=== PATIENT | female | born 1990 | race Hispanic/Latino ===

== ENCOUNTER 2017-02-14 02:58 | Emergency (ER) | payer BC ==
[2017-02-14 03:08] VITALS: BP 128/85; PULSE 97; RESP 16; TEMP 98.7; O2SAT 100
--- NOTE | 2017-02-14 03:48 | ED PDOC ---
HPI: Abdomen Time Seen by Provider: 02/14/17 03:04 Chief Complaint (Nursing): Abdominal Pain Chief Complaint (Provider): Abdominal Pain History Per: Patient History/Exam Limitations: no limitations Current Symptoms Are (Timing): Still Present Additional Complaint(s): 26 y/o female with past medical history of ruptured ovarian cyst presents to the ED complaining of acute onset lower abdominal pain x 4hours, which is about 6/10 and is worse with movement and activity. Pain begins spontaneously and is not associated with any activity or sexual intercourse. She states that the pain is reminiscent from the past with similar episode of rupture of ovarian cyst. Denies any further medical complaints. Past Medical History Reviewed: Historical Data, Nursing Documentation, Vital Signs Vital Signs: Last Vital Signs Temp 98.7 F 02/14/17 03:05 Pulse 97 H 02/14/17 03:05 Resp 16 02/14/17 03:05 BP 128/85 02/14/17 03:05 Pulse Ox 100 02/14/17 03:54 - Surgical History Other surgeries: Ovarian Cyst - Family History Family History: States: Unknown Family Hx - Social History Current smoker - smoking cessation education provided: No Alcohol: Social Drugs: Denies - Allergies Allergies/Adverse Reactions: Allergies Allergy/AdvReac Type Severity Reaction Status Date / Time No Known Allergies Allergy Verified 02/14/17 03:05 Review of Systems ROS Statement: Except As Marked, All Systems Reviewed And Found Negative (As per HPI, otherwise negative) Gastrointestinal: Positive for: Abdominal Pain Physical Exam - Reviewed Nursing Documentation Reviewed: Yes Vital Signs Reviewed: Yes - Physical Exam Appears: Positive for: Well, Non-toxic, No Acute Distress Head Exam: Positive for: ATRAUMATIC, NORMAL INSPECTION, NORMOCEPHALIC Skin: Positive for: Normal Color, Warm, Dry Eye Exam: Positive for: Normal appearance ENT: Positive for: Normal ENT Inspection Neck: Positive for: Normal, Painless ROM, Supple Cardiovascular/Chest: Positive for: Regular Rate, Rhythm. Negative for: Murmur Respiratory: Positive for: Normal Breath Sounds. Negative for: Accessory Muscle Use, Respiratory Distress Gastrointestinal/Abdominal: Positive for: Tenderness (Mild suprapubic tenderness ) Back: Positive for: Normal Inspection Extremity: Positive for: Normal ROM Neurologic/Psych: Positive for: Alert, Oriented (x3) - Laboratory Results Result Diagrams: 02/14/17 03:25 02/14/17 03:25 - ECG O2 Sat by Pulse Oximetry: 100 (RA) Pulse Ox Interpretation: Normal Medical Decision Making Medical Decision Making: Time: 03:24 Initial Impression: 26 y/o female with abdominal pain in setting of ruptured ovarian cyst Plan: BMP Urine dipstick Urine CBC w/ diff Heplock insertion Urinalysis Transvaginal US Patient declined any analgesic Time: 05:47 Patient has shown improvements in symptoms and is medically stable. No clinically significant abnormalities were found. Patient will be discharged home. Clinical Impression: Abdominal Pain Scribe Attestation: Documented by Jessica Doll acting as a scribe for Eh Gooden MD. Scribe Attestation: All medical record entries made by the Scribe were at my direction and personally dictated by me. I have reviewed the chart and agree that the record accurately reflects my personal performance of the history, physical exam, medical decision making, and the department course for this patient. I have also personally directed, reviewed, and agree with the discharge instructions and disposition. Disposition - Clinical Impression Clinical Impression: Abdominal pain - Disposition Disposition: Routine/Home Disposition Time: 05:47 Condition: STABLE Instructions: Abdominal Pain (ED) Forms: [employer] (Romanian)
[2017-02-14 03:53] LABS: BASO # 0.1 K/uL (0.0-0.2); BASO % 0.6 % (0.0-2.0); EOS # 0.1 K/uL (0.0-0.7); EOS % 1.4 % (0.0-4.0); HEMATOCRIT 39.4 % (34.0-47.0); LYMPH # 2.7 K/uL (1.0-4.3); LYMPH % 30.2 % (20.0-40.0); MEAN CELL VOLUME 88.4 fl (81.0-99.0); MEAN PLATELET VOLUME 9.5 fl (7.2-11.7); MONO # 0.7 K/uL (0.0-0.8); MONO % 7.8 % (0.0-10.0); NEUT # 5.4 K/uL (1.8-7.0); RED CELL DISTRIBUTION WIDTH 12.9 % (11.5-14.5); WHITE BLOOD COUNT 9.1 K/uL (4.8-10.8)
[2017-02-14 04:00] LABS: RBC URINE 2 /hpf (0-3); URINE BACTERIA RARE (<OCC); URINE BILIRUBIN NEGATIVE (NEGATIVE); URINE BLOOD NEGATIVE (NEGATIVE); URINE COLOR YELLOW (YELLOW); URINE GLUCOSE (UA) NEG (Normal); URINE KETONE NEGATIVE (NEGATIVE); URINE LEUKOCYTE ESTERASE NEG Leu/uL (Negative); URINE PROTEIN NEGATIVE (NEGATIVE); URINE UROBILINOGEN 0.2-1.0 mg/dL (0.2-1.0); WBC URINE 1 /hpf (0-5)
[2017-02-14 04:02] LABS: BLOOD UREA NITROGEN 11 mg/dl (7-17); CALCIUM 9.4 mg/dL (8.4-10.2); CARBON DIOXIDE 29 mmol/L (22-30); CHLORIDE 100 mmol/L (98-107); GFR AFRICAN-AMERICAN > 60; GLUCOSE,RANDOM 98 mg/dL (65-105); POTASSIUM 3.5 MMOL/L (3.6-5.0); SODIUM 137 mmol/l (132-148)
--- NOTE | 2017-02-14 15:49 | US ---
HISTORY: abdominal pain COMPARISON: None available. TECHNIQUE: Transabdominal and transvaginal pelvic ultrasound was performed with longitudinal and transverse images submitted for interpretation. FINDINGS: UTERUS: Measures 6.7 x 4.5 x 3.2 cm. Normal in size and appearance. No fibroid or other mass lesion seen. ENDOMETRIUM: Measures 10 mm in diameter. Intrauterine device is identified in situ. CERVIX: No cervical abnormality identified. RIGHT OVARY: Measures 3.2 x 2.3 x 1.4 cm. No solid mass. Normal flow. LEFT OVARY: Measures 3.5 x 2.5 x 1.7 cm. No solid mass. Normal flow. FREE FLUID: No significant free fluid noted. OTHER FINDINGS: None. IMPRESSION: Intrauterine device identified in situ within the endometrial cavity with examination otherwise unremarkable.
== END 2017-02-14 05:54 | disposition home or self-care (01) ==
LOC: H.ER 02:58
DX: R10.30 Lower abdominal pain, unspecified (principal)